=== PATIENT | female | born 1970 | race Caucasian/White ===

== ENCOUNTER → 2019-07-07 13:19 | Outpatient (BNVA) | payer OTHER, SELFPAY | PROVIDERS: PCP Nurse Practitioner Family; Visit Provider Otolaryngology | DX: H93.92 Unspecified disorder of left ear (principal); H92.02 Otalgia, left ear; H91.92 Unspecified hearing loss, left ear; J34.2 Deviated nasal septum; F17.210 Nicotine dependence, cigarettes, uncomplicated | CPT/HCPCS: 99203; 99214 ==

== ENCOUNTER 2019-07-16 15:29 | Outpatient (CLI) | payer OTHER, SELFPAY ==
--- NOTE | 2019-07-16 11:30 | CTR_ITS ---
PROCEDURE INFORMATION: Exam: CT Temporal Bones Without Contrast. Exam date and time: 07/16/2019 3:46 PM Age: 49 years old Clinical indication: Other: Ringing in ears (resolved); Additional info: Ear problems TECHNIQUE: Imaging protocol: Computed tomography images of the temporal bones without contrast. Total DLP: 955.45 mGy-cm Radiation optimization: All CT scans at this facility use at least one of these dose optimization techniques: automated exposure control; mA and/or kV adjustment per patient size (includes targeted exams where dose is matched to clinical indication); or iterative reconstruction. COMPARISON: No relevant prior studies available. FINDINGS: RIGHT TEMPORAL BONE: Right inner ear: Normal. Right ossicles and middle ear: Normal. The middle ear ossicles are intact. Right external auditory canal: Normal. Right facial nerve canal: Normal. Right jugular foramen: No jugular dehiscence. Right carotid canal: No aberrent carotid canal. Right mastoid air cells: Normal. No mastoid effusions. LEFT TEMPORAL BONE: Left inner ear: Normal. Left ossicles and middle ear: Normal. The middle ear ossicles are intact. Left external auditory canal: Normal. Left facial nerve canal: Normal. Left jugular foramen: No jugular dehiscence. Left carotid canal: No aberrent carotid canal. Left mastoid air cells: Normal. No mastoid effusions. CT/CT temporal bone wo con* [id number] IMPRESSION: No acute findings. Radiation Dose CTDIVOL = (mGy): DLP = 955.45 (mGy-cm)
== END 2019-07-16 15:30 | disposition home or self-care (01) ==
LOC: CT 15:32
PROVIDERS: PCP Nurse Practitioner Family; Visit Provider Otolaryngology
DX: H93.90 Unspecified disorder of ear, unspecified ear (principal)
CPT/HCPCS: 70480

== ENCOUNTER 2019-10-11 16:24 | Emergency (ER) | payer OTHER, SELFPAY ==
[2019-10-11 16:46] VITALS: BP 140/95; PULSE 102; RESP 18; TEMP 36.8; O2SAT 97; BMI 33.3
--- NOTE | 2019-10-11 17:15 | XR_ITS ---
WS: [id number] PORTABLE CHEST HISTORY: elevated HR COMPARISON: 12/02/2018 Lungs are clear and well expanded. No pleural effusion or pneumothorax. Cardiac size: Normal. Mediastinum/Aorta: Normal mediastinum. No osseous abnormality seen. XR/XR chest 1V portable [id number] IMPRESSION: Unremarkable portable chest.
--- NOTE | 2019-10-11 17:15 | ECG_ITS ---
Measurements Intervals [place] Rate: 83 P: 53 VT: 157 QRS: 44 QRSD: 109 T: 68 QT: 394 QTc: 463 SINUS RHYTHM LOW QRS VOLTAGE IN PRECORDIAL LEADS [QRS DEFLECTION < 1.0 mV IN CHEST LEADS] Compared to ECG 12/02/2018 15:03:48 Sinus arrhythmia no longer present Electronically Signed On 10-11-2019 19:06:35 CDT by Milagro Gonzalez M.D. [email or web address]
--- NOTE | 2019-10-11 17:15 | W.ED.GENADLT ---
HPI - General Adult General: Chief complaint: General Medical Stated complaint: dizzy, ams Time Seen by Provider: 10/11/19 17:08 History of Present Illness: HPI narrative: Patient complains about elevated heart rate and dizziness in the morning evening is been going on for last couple weeks. Has had ear problems the past. Has had elevated heart rate and she does not take the medication Dr. Goldy Emanuel prescribed for which is metoprolol and her heart runs fast when she does not take it but she is worried about her blood pressure being low and that is why she did not take it. complaint: Dizziness and elevated heart rate Onset (ago): week(s) Severity: mild Relieving factors: none Exacerbating factors: none Associated symptoms: Deny chest pain, dyspnea, headache(s), nausea, rash or vomiting Review of Systems Const: Denies: fever(s), chills or body aches Eyes: Denies: change in vision or blurry vision ENMT: Denies: throat pain or nasal congestion Card: Reports: irregular heart rhythm; Denies: chest pain or dyspnea on exertion Resp: Denies: dyspnea, productive cough or non-productive cough GI: Denies: abdominal pain, nausea or vomiting Musc: Denies: extremity pain Skin/Breast: Denies: rash Neuro: Reports: dizziness; Denies: headache(s) Psych: Denies: anxiety or depression Dougie/Lymph: Denies: easy bruising PFSH ED PFSH: Medical History (Updated 08/18/19 @ 17:30 by Sarthak Patel MD) Deviated septum Hearing loss in left ear High risk medication use Hypothyroidism Immunization counseling Inflammatory arthritis Otalgia of left ear Surgical History (Updated 08/18/19 @ 17:30 by Sarthak Patel MD) History of appendectomy Family History (Updated 08/18/19 @ 15:36 by Marcy Mendoza LPN) Other CAD (coronary artery disease) Cancer Heart attack Hypertension Rheumatoid arthritis Denies family history of Diabetes Systemic lupus erythematosus (SLE) in adult Family history of premature coronary artery disease Stroke Social History (Updated 08/18/19 @ 15:36 by Marcy Mendoza LPN) Smoking and tobacco status: current every day smoker cigarettes Packs smoked per day: 1 Years cigarettes smoked: 30 Alcohol intake: never History of recent travel: No Physical Exam Const: COMMON NORMALS: no acute distress, average body habitus and patient oriented x3 HENMT: COMMON NORMALS: normocephalic HEAD & SCALP: normal to inspection and normocephalic FACE & SINUS: normal facial exam Eye: COMMON NORMALS: conjunctivae normal GENERAL EYE: appearance normal, both eyes and all related structures CONJUNCTIVA: Yes conjunctivae normal Neck/C-Spine: COMMON NORMALS: no JVD Chest: COMMONS NORMALS: normal inspection of the chest Resp: COMMON NORMALS: normal respiratory effort and clear to auscultation bilaterally AUSCULTATION: clear to auscultation bilaterally Cardio: COMMON NORMALS: no JVD, regular rate and regular rhythm RATE: regular rate RHYTHM: regular rhythm GI: COMMON NORMALS: Normal to inspection, nondistended, normoactive bowel sounds present Extremity: COMMON NORMALS: normal to inspection and full ROM Neuro: COMMON NORMALS: patient oriented x3 Course Vital Signs: Vital signs: Vital Signs Temperature 98.2 F 10/11/19 16:46 Pulse Rate 102 H 10/11/19 16:46 Respiratory Rate 18 10/11/19 16:46 Blood Pressure 140/95 10/11/19 16:46 Pulse Oximetry 97 10/11/19 16:46 Discharge Plan Discharge Prescriptions: No Action levothyroxine 125 mcg capsule 125 mcg PO DAILY RF: 0 methocarbamol 750 mg tablet 750 mg PO QID RF: 0 meloxicam 15 mg tablet 15 mg PO DAILY RF: 0 triamterene-hydrochlorothiazid 37.5-25 mg tablet 1 tab PO DAILY RF: 0 metoprolol tartrate 50 mg tablet 50 mg PO DAILY RF: 0 gabapentin 300 mg capsule 300 mg PO TID Qty: 90 RF: 3 Coding Level of Care Code 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
[2019-10-11 17:50] LABS: Basophils # 0.1 10^3/uL (0.0-0.1); Basophils % 0.5 %; Eosinophils # 0.6 10^3/uL (0.0-0.8); Eosinophils % 5.2 %; Hematocrit 47.3 % (37.0-47.0); Hemoglobin 15.2 g/dL (11.5-15.3); Lymphocytes # 4.6 10^3/uL (0.8-4.8); Lymphocytes % 38.3 %; Mean Corpuscular HGB Conc 32.1 g/dL (30.0-36.0); Mean Corpuscular Hemoglobin 32.5 pg (28.0-34.0); Mean Corpuscular Volume 101.1 fL (81-99); Monocytes % 8.6 %; Neutrophils # 5.6 10^3/uL (1.8-7.7); Neutrophils % 46.9 %; Nucleated Red Blood Cells % 0 %; Platelet Count 319 10^3/cmm (130-400); Red Blood Count 4.68 10^6/uL (4.1-5.3); Red Cell Distribution Width 14.6 % (12.1-15.1); White Blood Count 11.9 10^3/uL (4.0-10.0)
[2019-10-11 17:52] VITALS: PULSE 85; RESP 16; O2SAT 98
[2019-10-11 18:03] LABS: Alanine Aminotransferase 38 U/L (0-33); Albumin Level 3.8 g/dL (3.5-5.2); Alkaline Phosphatase 172 IU/L (35-105); Anion Gap 13.3 (5-19); Aspartate Amino Transferase 38 U/L (0-32); Blood Urea Nitrogen 8 mg/dL (6-20); Calcium 9.8 mg/dL (8.5-10.5); Carbon Dioxide 29 mmol/L (22-29); Chloride 99 mmol/L (98-107); Creatinine Clr Calc Pharmacy 61.7171; Globulin 3.3 g/dL (1.3-4.6); Glomerular Filtration Rate 47.4 mL/min (90-130); Glucose 94 mg/dL (65-115); Osmolality Calculated 282 mOsm/kg (285-295); Potassium 3.3 mmol/L (3.5-5.1); Sodium 138 mmol/L (136-145); Total Bilirubin 0.2 mg/dL (0.15-1.2); Total Protein 7.1 g/dL (6.6-8.7)
[2019-10-11 18:35] VITALS: BP 140/87; PULSE 83; RESP 16; O2SAT 98
== END 2019-10-11 18:36 | disposition home or self-care (01) ==
PROVIDERS: Emergency Provider Nurse Practitioner Family; PCP Nurse Practitioner Family
DX: R42 Dizziness and giddiness (principal); F17.210 Nicotine dependence, cigarettes, uncomplicated
CPT/HCPCS: 12345; 71045; 80053; 85025; 93005; 99282; 99283

== ENCOUNTER 2019-11-13 13:21 | Outpatient (CLI) | payer BC, SELFPAY ==
--- NOTE | 2019-11-13 13:28 | XRR_ITS ---
PROCEDURE INFORMATION: Exam: XR Chest, 2 Views Exam date and time: 11/13/2019 1:57 PM Age: 49 years old Clinical indication: Condition or disease; Other: Inflammatory arthritis; Additional info: Inflammatory arthrtis TECHNIQUE: Imaging protocol: XR of the chest Views: 2 views. COMPARISON: CR XR chest 1V portable [id number] 10/11/2019 5:28 PM FINDINGS: Lungs: Unremarkable. No consolidation. Pleural space: Unremarkable. No pleural effusion. No pneumothorax. Heart/Mediastinum: Unremarkable. No cardiomegaly. Bones/joints: Unremarkable. XR/XR chest 2V* [id number] IMPRESSION: No acute findings.
--- NOTE | 2019-11-13 13:28 | XRR_ITS ---
PROCEDURE INFORMATION: Exam: XR Left Hand Exam date and time: 11/13/2019 1:49 PM Age: 49 years old Clinical indication: Condition or disease; Other: Inflammatory arthritis; Hand; Bilateral; Additional info: Inflammatory arthrtis TECHNIQUE: Imaging protocol: XR Left hand. Views: 3 or more views. COMPARISON: No relevant prior studies available. FINDINGS: Bones/joints: Negative for acute bony abnormality Soft tissues: Normal. XR/XR hand LT min 3V* [id number] IMPRESSION: No acute findings.
--- NOTE | 2019-11-13 13:28 | XRR_ITS ---
PROCEDURE INFORMATION: Exam: XR Right Foot Complete Exam date and time: 11/13/2019 1:51 PM Age: 49 years old Clinical indication: Condition or disease; Arthritis and other: Inflammatory arthritis; Bilateral; Additional info: Inflammatory arthrtis TECHNIQUE: Imaging protocol: XR Right foot. Views: 3 or more views. COMPARISON: No relevant prior studies available. FINDINGS: Bones/joints: Negative for acute bony abnormality. It there is a bone spur seen on the inferior calcaneus Soft tissues: Normal. XR/XR foot RT min 3V* [id number] IMPRESSION: No acute findings. Bone spur inferior calcaneus
--- NOTE | 2019-11-13 13:28 | XRR_ITS ---
PROCEDURE INFORMATION: Exam: XR Left Foot Complete Exam date and time: 11/13/2019 1:53 PM Age: 49 years old Clinical indication: Condition or disease; Arthritis and other: Inflammatory; Bilateral; Additional info: Inflammatory arthrtis TECHNIQUE: Imaging protocol: XR Left foot. Views: 3 or more views. COMPARISON: No relevant prior studies available. FINDINGS: Bones/joints: Negative for acute bony abnormality. There is a bone spur inferior calcaneus Soft tissues: Unremarkable XR/XR foot LT min 3V* [id number] IMPRESSION: No acute findings. There is a bone spur inferior calcaneus
--- NOTE | 2019-11-13 13:28 | XRR_ITS ---
PROCEDURE INFORMATION: Exam: XR Right Hand Exam date and time: 11/13/2019 1:47 PM Age: 49 years old Clinical indication: Condition or disease; Arthritis and other: Inflammatory arthritis; Hand; Bilateral; Additional info: Inflammatory arthrtis TECHNIQUE: Imaging protocol: XR Right hand. Views: 3 or more views. COMPARISON: No relevant prior studies available. FINDINGS: Bones/joints: Negative for acute bony abnormality Soft tissues: Normal. XR/XR hand RT min 3V* [id number] IMPRESSION: No acute findings.
== END 2019-11-13 13:22 | disposition home or self-care (01) ==
LOC: RAD 13:25
PROVIDERS: PCP Nurse Practitioner Family; Visit Provider Internal Medicine Rheumatology
DX: M19.90 Unspecified osteoarthritis, unspecified site (principal); M77.32 Calcaneal spur, left foot; M77.31 Calcaneal spur, right foot
CPT/HCPCS: 71046; 73130; 73630

== ENCOUNTER → 2019-11-17 11:00 | Outpatient (BNVA) | payer BC, SELFPAY | PROVIDERS: PCP Nurse Practitioner Family; Visit Provider Internal Medicine Rheumatology | DX: M19.90 Unspecified osteoarthritis, unspecified site (principal); E03.9 Hypothyroidism, unspecified; J34.2 Deviated nasal septum; H91.92 Unspecified hearing loss, left ear; H92.02 Otalgia, left ear; Z71.89 Other specified counseling; Z79.899 Other long term (current) drug therapy; Z11.59 Encounter for screening for other viral diseases; Z72.89 Other problems related to lifestyle | CPT/HCPCS: 36415; 80076; 82306; 82565; 84439; 84443; 84550; 85025; 85651; 86140; 86431; 86480; 86704; 86803; 87340 ==

== ENCOUNTER → 2019-12-15 16:25 | Outpatient (BNVA) | payer BC, SELFPAY | PROVIDERS: PCP Nurse Practitioner Family; Visit Provider Internal Medicine Rheumatology | DX: M06.041 Rheumatoid arthritis without rheumatoid factor, right hand (principal); M06.042 Rheumatoid arthritis without rheumatoid factor, left hand; Z79.899 Other long term (current) drug therapy; R76.8 Other specified abnormal immunological findings in serum; M17.10 Unilateral primary osteoarthritis, unspecified knee; R68.2 Dry mouth, unspecified; F17.210 Nicotine dependence, cigarettes, uncomplicated; M79.7 Fibromyalgia | CPT/HCPCS: 99214 ==

== ENCOUNTER → 2020-01-20 15:43 | Outpatient (BNVA) | payer BC, SELFPAY | PROVIDERS: PCP Nurse Practitioner Family; Visit Provider Internal Medicine Rheumatology | DX: M06.041 Rheumatoid arthritis without rheumatoid factor, right hand (principal); M06.042 Rheumatoid arthritis without rheumatoid factor, left hand; Z79.899 Other long term (current) drug therapy | CPT/HCPCS: 36415; 80076; 82565; 85025; 85651; 86140; 86812 ==

== ENCOUNTER → 2020-02-16 15:39 | Outpatient (BNVA) | payer BC, SELFPAY | PROVIDERS: PCP Nurse Practitioner Family; Visit Provider Internal Medicine Rheumatology | DX: M19.90 Unspecified osteoarthritis, unspecified site (principal); Z79.899 Other long term (current) drug therapy; R76.8 Other specified abnormal immunological findings in serum; M05.9 Rheumatoid arthritis with rheumatoid factor, unspecified; M34.9 Systemic sclerosis, unspecified; F17.210 Nicotine dependence, cigarettes, uncomplicated; M79.7 Fibromyalgia | CPT/HCPCS: 99214 ==

== ENCOUNTER → 2020-03-22 11:53 | Outpatient (BNVA) | payer BC, SELFPAY | PROVIDERS: PCP Nurse Practitioner Family; Visit Provider Nurse Practitioner Family | DX: Z20.828 Contact with and (suspected) exposure to other viral communicable diseases (principal); J06.9 Acute upper respiratory infection, unspecified | CPT/HCPCS: 87400; 87635 ==

== ENCOUNTER → 2020-05-23 15:52 | Outpatient (BNVA) | payer BC, SELFPAY | PROVIDERS: PCP Nurse Practitioner Family; Visit Provider Internal Medicine Rheumatology | DX: M34.9 Systemic sclerosis, unspecified (principal); R76.8 Other specified abnormal immunological findings in serum; Z79.899 Other long term (current) drug therapy; M75.51 Bursitis of right shoulder; Y93.9 Activity, unspecified; M17.10 Unilateral primary osteoarthritis, unspecified knee; M19.90 Unspecified osteoarthritis, unspecified site; F17.210 Nicotine dependence, cigarettes, uncomplicated | CPT/HCPCS: 20610; 99214 ==

== ENCOUNTER → 2020-10-26 13:28 | Outpatient (BNVA) | payer SELFPAY | PROVIDERS: PCP Nurse Practitioner Family; Visit Provider Internal Medicine Rheumatology | DX: M34.9 Systemic sclerosis, unspecified (principal); R76.8 Other specified abnormal immunological findings in serum; M19.90 Unspecified osteoarthritis, unspecified site; M79.7 Fibromyalgia; F32.9 Major depressive disorder, single episode, unspecified; Z79.899 Other long term (current) drug therapy; F17.210 Nicotine dependence, cigarettes, uncomplicated | CPT/HCPCS: 99214 ==

== ENCOUNTER → 2021-02-09 08:31 | Outpatient (BNVA) | payer SELFPAY | PROVIDERS: PCP Nurse Practitioner Family; Visit Provider Internal Medicine Rheumatology | DX: M19.90 Unspecified osteoarthritis, unspecified site (principal); Z79.899 Other long term (current) drug therapy | CPT/HCPCS: 80076; 82565; 85025; 86140 ==

== ENCOUNTER → 2021-03-02 08:47 | Outpatient (BNVA) | payer SELFPAY | PROVIDERS: PCP Nurse Practitioner Family; Visit Provider Internal Medicine Rheumatology | DX: M06.041 Rheumatoid arthritis without rheumatoid factor, right hand (principal); M06.042 Rheumatoid arthritis without rheumatoid factor, left hand; M19.90 Unspecified osteoarthritis, unspecified site; Z79.899 Other long term (current) drug therapy; M34.9 Systemic sclerosis, unspecified; R74.8 Abnormal levels of other serum enzymes; R76.8 Other specified abnormal immunological findings in serum; M79.7 Fibromyalgia; F32.9 Major depressive disorder, single episode, unspecified; E03.9 Hypothyroidism, unspecified; Z71.89 Other specified counseling; F17.210 Nicotine dependence, cigarettes, uncomplicated | CPT/HCPCS: 99214 ==